=== PATIENT | male | born 2000 ===

== ENCOUNTER 2018-01-11 07:21 | Emergency (ER) | payer SELFPAY ==
[2018-01-11 07:21] VITALS: BMI 23.0
--- NOTE | 2018-01-11 07:36 | ED PDOC ---
Arrival/HPI - General Historian: Patient - History of Present Illness Narrative History of Present Illness (Text): 01/11/18 07:42 17 yo M with no significant PMHx presenting to ED for LBP that began 2 days ago. Patient states he was deadlifting 200 lbs at the gym, went home and had back aches while sleeping. He states he has not been able to sleep well for the past 2 days because of the pain he feels. Pain is described as cramping, localized to the R side paraspinal muscles in the lumbar region with radiation of pain to the R buttocks but not the RLE. It worsens with movement in all planes. Denies any saddle anesthesia, numbness/tingling of the extremities, urinary incontinence, headaches, dizziness, fevers/chills, n/v/d/c. Time/Duration: < week Symptom Onset: Sudden Symptom Course: Unchanged Quality: Cramping Severity Level: Mild Activities at Onset: Light <Juan Jose Leahy - Last Filed: 01/11/18 08:39> <Fritz Martinez - Last Filed: 01/11/18 08:49> - General Time Seen by Provider: 01/11/18 07:23 Past Medical History - Provider Review Nursing Documentation Reviewed: Yes - Psychiatric Hx Substance Use: No <Juan Jose Leahy - Last Filed: 01/11/18 08:39> Family/Social History - Physician Review Nursing Documentation Reviewed: Yes Smoking Status: Never Smoked Hx Alcohol Use: No Hx Substance Use: No <Juan Jose Leahy - Last Filed: 01/11/18 08:39> Family/Social History: Unknown Family HX <Fritz Martinez - Last Filed: 01/11/18 08:49> Allergies/Home Meds <Juan Jose Leahy - Last Filed: 01/11/18 08:39> <Fritz Martinez - Last Filed: 01/11/18 08:49> Allergies/Adverse Reactions: Allergies ceftriaxone Allergy (Verified 01/11/18 07:38) ANGIOEDEMA Home Medications: Home Meds Medication Instructions Recorded Confirmed No Known Home Med 01/11/18 01/11/18 Review of Systems - Physician Review All systems were reviewed & negative as marked: Yes - Review of Systems Constitutional: Normal Eyes: Normal ENT: Normal Respiratory: Normal Cardiovascular: Normal Gastrointestinal: Normal Genitourinary Male: Normal Musculoskeletal: Back Pain, Myalgias (R paraspinal lumbar region) Skin: Normal Neurological: Normal Endocrine: Normal Hemo/Lymphatic: Normal Psychiatric: Normal <Juan Jose Leahy - Last Filed: 01/11/18 08:39> Physical Exam Vital Signs Reviewed: Yes Temperature: Afebrile Blood Pressure: Normal Pulse: Regular Respiratory Rate: Normal Appearance: Positive for: Well-Appearing, Non-Toxic, Comfortable Pain Distress: Mild Mental Status: Positive for: Alert and Oriented X 3 - Systems Exam Head: Present: Atraumatic, Normocephalic Pupils: Present: PERRL Extroacular Muscles: Present: EOMI Conjunctiva: Present: Normal Mouth: Present: Moist Mucous Membranes Neck: Present: Normal Range of Motion Respiratory/Chest: Present: Clear to Auscultation, Good Air Exchange. No: Resp iratory Distress, Accessory Muscle Use, Wheezes, Rales, Rhonchi Cardiovascular: Present: Regular Rate and Rhythm, Normal S1, S2 Abdomen: Present: Normal Bowel Sounds. No: Tenderness, Distention, Peritoneal Signs, Rebound, Guarding, Mass/Organomegaly Back: Present: Normal Inspection, Paraspinal Tenderness (R sided), Other (Full ROM of back with pain). No: Midline Tenderness Upper Extremity: Present: Normal Inspection, Normal ROM, NORMAL PULSES, Capillary Refill < 2s. No: Cyanosis, Edema, Tenderness, Swelling, Erythema Lower Extremity: Present: Normal Inspection, NORMAL PULSES, Normal ROM, Capillary Refill < 2 s. No: Edema, CALF TENDERNESS, Cyanosis, Tenderness, Sw elling Neurological: Present: GCS=15, Speech Normal Skin: Present: Warm, Dry, Normal Color. No: Rashes Psychiatric: Present: Alert, Oriented x 3, Normal Insight, Normal Concentration <Juan Jose Leahy - Last Filed: 01/11/18 08:39> Vital Signs Temp Pulse Resp BP Pulse Ox 01/11/18 07:30 97.4 F L 71 18 109/70 99 - Systems Exam Back: Present: Other. No: CVA Tenderness Lower Extremity: Present: Other (no saddle anesthesia) Neurological: Present: CN II-XII Intact, Motor Func Grossly Intact, Normal Sensory Function, Normal Cerebellar Funct, Gait Normal <Fritz Martinez - Last Filed: 01/11/18 08:49> Medical Decision Making ED Course and Treatment: 01/11/18 07:49 Impression: 17 yo M presenting to ED with LBP after deadlifting 200 lbs at the gym 2 days ago Plan: --motrin --flexeril --XR LS --reassess and disposition - RAD Interpretation Narrative RAD Interpretations (Text): 01/11/18 08:39 XR lumbar spine: no acute findings Medical Director/Head Team Physician: ED Physician <Juan Jose Leahy - Last Filed: 01/11/18 08:39> ED Course and Treatment: 01/11/18 07:58 17 y/o male w/ ppmhx p/w lower back pain after deadlifting 200 lbs 2d prior. No saddle anesthesia, enuresis or encoparesis. Walking well. No signs or symptoms of caudia equina. No spinal tenderness. No hx of IVDU or DM2. Pending imaging and reassessment. 01/11/18 08:28 Xray reviewed: unremarkable. Pain improved. Neuro exam stable. Clear for D/c home. Pt notes he has tylenol and motrin at home. Endorsed f/u and return precautions. - RAD Interpretation Radiology Orders: 01/11/18 07:41 SPINE LS COMP W / F & E [RAD] Stat - Medication Orders Current Medication Orders: Discontinued Medications Cyclobenzaprine HCl (Flexeril) 10 mg PO STAT STA Stop: 01/11/18 07:37 Last Admin: 01/11/18 07:57 Dose: 10 mg Ibuprofen (Motrin Tab) 800 mg PO STAT STA Stop: 01/11/18 07:39 Last Admin: 01/11/18 07:57 Dose: 800 mg <Fritz Martinez - Last Filed: 01/11/18 08:49> - PA / COM[employer]ED [employer] MECH[employer]IC / Resident Statement MD/DO has examined the patient and agrees with the treatment plan. <Fritz Martinez - Last Filed: 01/11/18 08:49> Disposition/Present on Arrival - Present on Arrival Any Indicators Present on Arrival: No History of DVT/PE: No History of Uncontrolled Diabetes: No Urinary Catheter: No History Surgical Site Infection Following: None - Disposition Have Diagnosis and Disposition been Completed?: Yes Disposition Time: 07:51 Patient Plan: Discharge <Juan Jose Leahy - Last Filed: 01/11/18 08:39> - Disposition Have Diagnosis and Disposition been Completed?: Yes <Fritz Martinez - Last Filed: 01/11/18 08:49> - Disposition Diagnosis: Strain of lumbar paraspinal muscle Disposition: HOME/ ROUTINE Condition: GOOD Discharge Instructions (ExitCare): Low Back Pain (DC), Muscle Strain (DC) Additional Instructions: TANIA MCKEE, thank you for letting us take care of you today. Your provider was Fritz Martinez and you were treated for lower back pain. The emergency medical care you received today was directed at your acute symptoms. If you were prescribed any medication, please fill it and take as directed. It may take several days for your symptoms to resolve. Return to the Emergency Department if your symptoms worsen, do not improve, or if you have any other problems. Please contact your doctor or call one of the physicians/clinics you have been referred to that are listed on the Patient Visit Information form that is included in your discharge packet. Bring any paperwork you were given at discharge with you along with any medications you are taking to your follow up visit. Our treatment cannot replace ongoing medical care by a primary care provider outside of the emergency department. Thank you for allowing the [facility] team to be part of your care today. If you had an X-Ray or CT scan: A Radiologist will review the ED reading if any change in treatment is needed we will contact you. If you had a blood, urine, or wound culture: It will take several days for the results, if any change in treatment is needed we will contact you. If you had an STI test: It will take 48 hours for the results. Please call after 1 week if you have not heard back. Referrals: [facility] [Outside] - Follow up with primary Mora Hines MD [Medical Doctor] - Follow up with primary Forms: [employer] (French), SCHOOL NOTE
[2018-01-11 07:39] VITALS: RESP 18
[2018-01-11 08:46] VITALS: BP 110/68; PULSE 77; TEMP 97.6; O2SAT 100
--- NOTE | 2018-01-11 10:49 | RAD ---
Date of service: 01/11/2018 PROCEDURE: Radiographs of the Lumbar Spine. HISTORY: LBP COMPARISON: No prior. FINDINGS: BONES: Normal alignment. No listhesis. No fracture. DISC SPACES: Unremarkable. OTHER FINDINGS: Constipation without fecal impaction or obstruction. IMPRESSION: Unremarkable radiographs of the lumbar spine. Additional benign and/or incidental findings described above. Concordant results with the preliminary interpretation rendered by the emergency department physician procedure.
== END 2018-01-11 08:46 | disposition home or self-care (01) ==
LOC: ED 07:21
DX: S39.012A Strain of muscle, fascia and tendon of lower back, initial encounter (principal); X50.0XXA Overexertion from strenuous movement or load, initial encounter; Y92.39 Other specified sports and athletic area as the place of occurrence of the external cause

== ENCOUNTER 2018-03-02 18:26 | Emergency (ER) | payer OTHER ==
[2018-03-02 19:56] VITALS: RESP 18; BMI 25.1
[2018-03-02] MEDS ORDERED: Atrop/Hyosc/Scopal/PB Elixir (120 ml) PO STA (20:14)
[2018-03-02] MEDS ORDERED: Alum-Mag Hydrox-Simethicone Susp (30 mL) PO STA (20:14)
[2018-03-02] MEDS ORDERED: Sodium Chloride 0.9% 1,000 ML IV STA (20:14)
--- NOTE | 2018-03-02 20:22 | ED PDOC ---
Arrival/HPI - General Chief Complaint: Abdominal Pain Time Seen by Provider: 03/02/18 19:00 - History of Present Illness Narrative History of Present Illness (Text): 03/02/18 20:17 17 year old M w/ no significant PMH presenting to the Emergency Room with complaint of abdominal pain ongoing since yesterday. Patient states he ate Turkmen food which consisted of of meat and ren slaw on a tortilla. He reports non-bloody, non-bilious emesis episode of emesis today, subjective fever, watery diarrhea and LLQ abdominal pain intermittently. He reports taking Maalox and drinking green tea in an effort to counteract his symptoms being unsuccessful. The patient denies any history of abdominal surgeries in the past. Time/Duration: 24 hours Symptom Onset: Gradual Symptom Course: Unchanged Quality: Aching Severity Level: 8 Activities at Onset: Eating Context: Home, Work Past Medical History - Provider Review Nursing Documentation Reviewed: Yes - Travel History Have you recently traveled outside [place] w/in the past 3 mons?: No - Infectious Disease Hx of Infectious Diseases: None - Psychiatric Hx Substance Use: No Family/Social History - Physician Review Nursing Documentation Reviewed: Yes Family/Social History: Unknown Family HX Smoking Status: Never Smoked Hx Alcohol Use: No Hx Substance Use: No Allergies/Home Meds Allergies/Adverse Reactions: Allergies ceftriaxone Allergy (Verified 03/02/18 19:51) ANGIOEDEMA Review of Systems - Physician Review All systems were reviewed & negative as marked: Yes - Review of Systems Respiratory: absent: SOB, Cough, Wheezing Cardiovascular: absent: Chest Pain Gastrointestinal: Abdominal Pain, Stool Changes, Diarrhea, Nausea, Vomiting, Appetite Changes Genitourinary Male: absent: Dysuria, Frequency, Hematuria Musculoskeletal: absent: Arthralgias, Neck Pain, Myalgias Skin: absent: Rash, Skin Lesions Physical Exam Vital Signs Temp Pulse Resp BP Pulse Ox 03/02/18 19:51 99.5 F 102 H 18 120/70 95 Temperature: Afebrile Blood Pressure: Normal Pulse: Tachycardic Respiratory Rate: Normal Appearance: Positive for: Well-Appearing, Non-Toxic, Comfortable Pain Distress: None Mental Status: Positive for: Alert and Oriented X 3 - Systems Exam Head: Present: Atraumatic, Normocephalic Pupils: Present: PERRL Extroacular Muscles: Present: EOMI Conjunctiva: Present: Normal Mouth: Present: Moist Mucous Membranes Neck: Present: Normal Range of Motion Respiratory/Chest: Present: Clear to Auscultation, Good Air Exchange. No: Respiratory Distress Cardiovascular: Present: Regular Rate and Rhythm, Normal S1, S2, Tachycardic Abdomen: Present: Tenderness (Tenderness to palpation of the LLQ), Normal Bowel Sounds. No: Distention, Rebound, Guarding, McBurney's Point Tender Upper Extremity: Present: Normal Inspection, Capillary Refill < 2s. No: Cyanosis, Edema Lower Extremity: Present: Normal Inspection. No: Edema Neurological: Present: GCS=15, CN II-XII Intact, Speech Normal Skin: Present: Warm, Dry, Normal Color. No: Rashes Psychiatric: Present: Alert, Oriented x 3, Normal Insight, Normal Concentration Medical Decision Making ED Course and Treatment: 03/02/18 20:25 Impression 17 year old M w/ abdominal pain, emesis and watery diarrhea Differential Diagnoses Include But Are Not Limited To: Gastroenteritis Pancreatitis Enteritis Diverticulitis Pancreatitis Plan --Labs --Maalox -- --Urinalysis --NSS --Reassess & disposition Progress Notes 03/05/18 21:38 Labs reviewed with no evidence of leukocytosis or elevated lipase. Patient reassessed and feels much better. Scripts provided. Patient advised to continue conservative measures at home with active rehydration regimen to maintain adequate volume status. Return protocol provided. She is advised to follow up with her PCP in 1-2 days. She is stable for discharge. - Lab Interpretations Lab Results: 03/02/18 20:50 03/02/18 20:50 Lab Results 03/02/18 20:50: Sodium 136, Potassium 4.2, Chloride 98, Carbon Dioxide 29, Anion Gap 14, BUN 19, Creatinine 1.1, Est GFR ( Amer) > 60, Est GFR (Non-Af Amer) > 60, Random Glucose 110, Calcium 9.1, Total Bilirubin 1.2, AST 24, ALT 29, Alkaline Phosphatase 66, Total Protein 7.5, Albumin 4.4, Globulin 3.1, [place]bu min/Globulin Ratio 1.4, Lipase 23 03/02/18 20:50: WBC 9.1, RBC 5.58, Hgb 17.1, Hct 48.2, MCV 86.4, MCH 30.6, MCHC 35.5, RDW 12.7, Plt Count 184, MPV 9.4, Gran % 85.6 H, Lymph % (Auto) 7.4 L, [place] % (Auto) 6.7 H, Eos % (Auto) 0.2 L, Baso % (Auto) 0.1, Gran # 7.77 H, Lymph # (Auto) 0.7 L, [place] # (Auto) 0.6, Eos # (Auto) 0.0, Baso # (Auto) 0.01 I have reviewed the lab results: Yes - Medication Orders Current Medication Orders: Al Hydrox/Mg Hydrox/Simethicone (Maalox Plus 30 Ml) 30 ml PO STAT STA Stop: 03/02/18 20:15 Belladonna/Phenobarbital ( Elixir) 10 ml PO STAT STA Stop: 03/02/18 20:15 Famotidine (Pepcid) 20 mg IVP STAT STA Stop: 03/02/18 20:15 Sodium Chloride (Sodium Chloride 0.9%) 1,000 mls @ 999 mls/hr IV .Q1H1M STA Stop: 03/02/18 21:14 Ondansetron HCl (Zofran Inj) 4 mg IVP STAT STA Stop: 03/02/18 20:15 Disposition/Present on Arrival - Present on Arrival Any Indicators Present on Arrival: No History of DVT/PE: No History of Uncontrolled Diabetes: No Urinary Catheter: No History of Decub. Ulcer: No History Surgical Site Infection Following: None - Disposition Have Diagnosis and Disposition been Completed?: Yes Diagnosis: Gastroenteritis Disposition: HOME/ ROUTINE Disposition Time: 21:30 Patient Plan: Discharge Condition: IMPROVED Discharge Instructions (ExitCare): Gastritis (DC), Gastroenteritis (ED) Print Language: MALIAN Prescriptions: Ondansetron ODT [Zofran ODT] 4 mg PO Q6H #4 odt Referrals: Mora Hines MD [Medical Doctor] - Follow up with primary [facility] [Outside] - Follow up with primary Forms: [employer] (Senegalese), WORK NOTE
[2018-03-02 20:55] LABS: BASO # 0.01 K/mm3 (0.0-2.0); BASO % 0.1 % (0.0-3.0); EOS % 0.2 % (1.5-5.0); GRAN # 7.77 (1.4-6.5); GRAN % 85.6 % (50.0-68.0); HEMOGLOBIN 17.1 g/dL (14.0-18.0); LYMPH # 0.7 (1.2-3.4); LYMPH % 7.4 % (22.0-35.0); MEAN CELL VOLUME 86.4 fl (80.0-105.0); MEAN CORPUSCULAR HEMOGLOBIN 30.6 pg (25.0-35.0); MEAN CORPUSCULAR HGB CONC 35.5 g/dl (31.0-37.0); MEAN PLATELET VOLUME 9.4 fl (7.0-11.0); MONO # 0.6 (0.1-0.6); MONO % 6.7 % (1.0-6.0); RBC 5.58 10^6/uL (3.5-6.1); RED CELL DISTRIBUTION WIDTH 12.7 % (11.5-14.5); WHITE BLOOD COUNT 9.1 10^3/uL (4.5-11.0)
[2018-03-02 21:09] VITALS: BP 119/70; PULSE 92; TEMP 98.8; O2SAT 96
[2018-03-02 21:09] LABS: ALB/GLOB RATIO 1.4 (1.1-1.8); ALBUMIN 4.4 g/dL (3.0-4.8); ALT/SGPT 29 U/L (7-56); AST/SGOT 24 U/L (17-59); BLOOD UREA NITROGEN 19 mg/dL (7-21); CALCIUM 9.1 mg/dL (8.4-10.5); GFR NON-AFRICAN AMERICAN > 60; LIPASE 23 U/L (23-300)
== END 2018-03-02 21:45 | disposition home or self-care (01) ==
LOC: ED 18:26
DX: K52.9 Noninfective gastroenteritis and colitis, unspecified (principal)
CPT/HCPCS: 80053; 83690; 85025; 96361; 96374; 96375; 99283; J1885; J2405; J7030